=== PATIENT | male | born 1975 | race African-American/Black ===

== ENCOUNTER 2017-05-22 15:32 | Emergency (ER) | payer OTHER ==
[~2017-05-22] VITALS: Ht 172.7 cm; Wt 90.7 kg
--- NOTE | ~2017-05-22 | EKG ---
[address] [address] [place] [address] ELECTROCARDIOGRAM REPORT Name: NANDA SANTANA Room #: DEP Fay#: [id number] Admission: 05/22/17 Attend Phys: Discharge: 05/22/17 Date of : 71 Report #: [id number] THIS REPORT FOR: //name// [facility] ED Test Date: 2017-05-22 Test Time: 15:45:48 Pat Name: NANDA SANTANA Department: Room: Gender: Perch Mender: [facility] : 1975 Requested By: Sabrina Vincent Order Number: [id number] MD: Buck Aguilar Measurements Intervals [place] Rate: 88 P: 31 AL: 163 QRS: -24 QRSD: 98 T: 2 QT: 352 QTc: 426 Interpretive Statements Sinus rhythm Probable left atrial enlargement Borderline left axis deviation Abnormal R-wave progression, late transition No previous ECG available for comparison Electronically Signed On 05-23-2017 11:27:44 DROP FORGE HAND by Buck Aguilar [email or web address] <ELECTRONICALLY SIGNED> By: Buck Aguilar MD, [facility] 05/23/17 1127 1545 1545 Buck Aguilar MD, FACC /EPI
[2017-05-22 15:57] LABS: ABSOLUTE NEUTROPHILS 8.6 thou/uL (1.4-8.2); BASOPHILS 0.8 % (0.0-2.0); EOSINOPHILS 0.5 % (0.0-3.0); HEMATOCRIT 41.2 % (42.0-52.0); HEMOGLOBIN 13.7 gm/dL (14.0-18.0); LYMPHOCYTES 16.2 % (24.0-44.0); MCH 28.1 pg (26.0-34.0); MCHC 33.3 g/dL (28.0-37.0); MCV 84.3 fL (80.0-100.0); MONOCYTES 6.7 % (1.0-8.0); PLATELET COUNT 268 thou/uL (150-400); POLYS 75.8 % (36.0-66.0); RBC 4.89 mil/uL (4.50-6.00); WBC 11.3 thou/uL (4.0-11.0)
[2017-05-22 16:04] LABS: URINE BILIRUBIN NEGATIVE (Negative); URINE BLOOD TRACE (Negative); URINE CLARITY CLEAR; URINE COLOR YELLOW; URINE GLUCOSE-RANDOM* NEGATIVE (Negative); URINE KETONES NEGATIVE (Negative); URINE LEUKOCYTES NEGATIVE (Negative); URINE NITRITE NEGATIVE (Negative); URINE PROTEIN (DIPSTICK) NEGATIVE (Negative); URINE SPECIFIC GRAVITY 1.025 (1.005-1.035); URINE UROBILINOGEN 0.2 E.U./dl (0.2-1.0)
[2017-05-22 16:05] LABS: ANION GAP 10 mmol/L (7-16); BUN 11 mg/dL (7-18); CALCIUM 8.8 mg/dL (8.5-10.1); CHLORIDE 103 mmol/L (98-107); CO2 25 mmol/L (21-32); CREATININE 1.2 mg/dL (0.7-1.3); GLUCOSE 112 mg/dL (74-106); POTASSIUM 3.6 mmol/L (3.5-5.1); SODIUM 138 mmol/L (136-145)
[2017-05-22 16:14] LABS: ALBUMIN 3.9 g/dL (3.4-5.0); SGOT 21 U/L (15-37); SGPT 28 U/L (30-65); TOTAL BILIRUBIN 0.4 mg/dL (<0.1-1.0); TOTAL PROTEIN 8.4 g/dL (6.4-8.2); TROPONIN-I < 0.04 ng/mL (<0.06)
[2017-05-22] MEDS ORDERED: LISINOPRIL10 MG PO (16:21)
[2017-05-22 16:32] VITALS: BP 141/105
== END 2017-05-22 16:33 | disposition home or self-care (01) ==
LOC: ER 15:32
PROVIDERS: Nurse Practitioner Family
DX: I10 Essential (primary) hypertension (principal); Z91.14 Patient's other noncompliance with medication regimen; Z88.8 Allergy status to other drugs, medicaments and biological substances

== ENCOUNTER 2017-06-22 11:17 | Emergency (ER) | payer OTHER ==
[~2017-06-22] VITALS: Ht 172.7 cm; Wt 99.8 kg
[~2017-06-22 11:17] MED LIST: LISINOPRIL10 MG PO
[2017-06-22] MEDS ORDERED: LISINOPRIL10 MG PO (11:23)
[2017-06-22 12:19] VITALS: BP 166/102
== END 2017-06-22 12:20 | disposition home or self-care (01) ==
LOC: ER 11:17
DX: I10 Essential (primary) hypertension (principal); F10.99 Alcohol use, unspecified with unspecified alcohol-induced disorder; Z90.49 Acquired absence of other specified parts of digestive tract; Z88.8 Allergy status to other drugs, medicaments and biological substances

== ENCOUNTER 2017-07-19 16:56 | Inpatient (IN) | payer OTHER ==
[~2017-07-19] VITALS: Ht 172.7 cm; Wt 119.3 kg
--- NOTE | ~2017-07-19 | EKG ---
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 : 1975 Requested By: Marco Antonio Pratt Order Number: [id number] MD: Buck Aguilar Measurements Intervals [place] Rate: 98 P: 36 [place]: 166 QRS: -20 QRSD: 92 T: 7 QT: 336 QTc: 430 Interpretive Statements Sinus rhythm Probable left atrial enlargement Borderline left axis deviation Abnormal R-wave progression, late transition Compared to ECG 05/22/2017 15:45:48 No significant change was found Electronically Signed On 07-20-2017 9:49:20 CDT by Buck Aguilar [email or web address] <ELECTRONICALLY SIGNED> By: Buck Aguilar MD, [facility] 07/20/17 0949 1821 1821 Buck Aguilar MD, [facility] /EPI
--- NOTE | ~2017-07-19 | EKG ---
[address] [address] [facility] [place] [address] ELECTROCARDIOGRAM REPORT Name: NANDA SANTANA Room #: 211-P ADM IN M.R.#: [id number] Admission: 07/19/17 Attend Phys: Shaq Hernandez DO Discharge: Date of : 71 Report #: [id number] THIS REPORT FOR: //name// [facility] ED Test Date: 2017-07-19 Test Time: 17:02:50 Pat Name: NANDA SANTANA Department: Room: 211 Gender: M Rn Eligibility: ROXANE : 1975 Requested By: Marco Antonio Pratt Order Number: [id number] MD: Buck Aguilar Measurements Intervals [place] Rate: 99 P: 33 NE: 164 QRS: -41 QRSD: 92 T: -3 QT: 322 QTc: 414 Interpretive Statements Sinus rhythm Left axis deviation Abnormal R-wave progression, late transition Compared to ECG 05/22/2017 15:45:48 No significant changes Electronically Signed On 07-20-2017 9:48:06 CDT by Buck Aguilar [email or web address] <ELECTRONICALLY SIGNED> By: Buck Aguilar MD, [facility] 07/20/17 0948 01 01 Buck Aguilar MD, [facility] /EPI
--- NOTE | ~2017-07-19 | EKG ---
[address] [address] ELECTROCARDIOGRAM REPORT Name: NANDA SANTANA Room #: 211-P ADM IN M.R.#: [id number] Admission: 07/19/17 Attend Phys: Shaq Hernandez DO Discharge: Date of : 71 Report #: [id number] THIS REPORT FOR: //name// [facility] Test Date: 2017-07-20 Test Time: 06:13:35 Pat Name: NANDA SANTANA Department: Room: 211 P Gender: M Case Picker: SATHISH : 1975 Requested By: Marco Antonio Pratt Order Number: [id number] MD: Measurements Intervals [employer] Rate: 78 P: 47 [place]: 166 QRS: -33 QRSD: 92 T: -2 QT: 362 QTc: 413 Interpretive Statements Sinus rhythm Probable left atrial enlargement Left axis deviation Abnormal R-wave progression, late transition Compared to ECG 05/22/2017 15:45:48 No significant changes [email or web address] By: 0613 0613 Epiphany EpiphanyMD /EPI
--- NOTE | ~2017-07-19 | EKG ---
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 : 1975 Requested By: Sudarshan Fry Order Number: [id number] MD: Buck Aguilar Measurements Intervals [place] Rate: 78 P: 47 [place]: 166 QRS: -33 QRSD: 92 T: -2 QT: 362 QTc: 413 Interpretive Statements Sinus rhythm Left axis deviation Abnormal R-wave progression, late transition Compared to ECG 05/22/2017 15:45:48 No significant changes Electronically Signed On 07-20-2017 9:55:23 CDT by Buck Aguilar [email or web address] <ELECTRONICALLY SIGNED> By: Buck Aguilar MD, [facility] 07/20/17 0955 2 2 Buck Aguilar MD, [facility] /EPI
--- NOTE | ~2017-07-19 | EKG ---
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: Rich TRUONG : 1975 Requested By: Sudarshan Fry Order Number: [id number] MD: Buck Aguilar Measurements Intervals [place] Rate: 85 P: 22 ND: 164 QRS: -29 QRSD: 92 T: 0 QT: 359 QTc: 427 Interpretive Statements Sinus rhythm Borderline left axis deviation Abnormal R-wave progression, late transition Borderline T abnormalities, inferior leads Compared to ECG 05/22/2017 15:45:48 No significant change was found Electronically Signed On 07-20-2017 9:50:20 CDT by Buck Aguilar [email or web address] <ELECTRONICALLY SIGNED> By: Buck Aguilar MD, [facility] 07/20/17 0950 2220 2220 Buck Aguilar MD, [facility] /EPI
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
--- NOTE | ~2017-07-19 | CATHLAB ---
[facility] [address] [email or web address] [address] INVASIVE PROCEDURE REPORT Name: NANDA SANTANA Room #: 211-P [facility] IN M.R.#: [id number] Admission: 07/19/17 Attend Phys: Shaq Hernandez, Discharge: 07/20/17 Date of : 71 Date of Service: 07/21/17 1519 Report #: [id number] THIS REPORT FOR: //name// APPROVED REPORT Study performed: 07/20/2017 07:10:17 Patient Details Patient Status: In-Patient Room #: The patient is a 41 year-old male Event Personnel Sudarshan Fry Shop Service Technician, Petar Brizuela RN, Brandy Dawn Sandifer, David Monitor Procedures Performed Art Access - R femoral artery* Left Heart Cath w/or w/o Coronaries [id number] [facility] Renal Bilateral Peripheral Angiography [id number] CVRENALBIL 18958 Initial Mod Sed Same Phys/QHP Gr5y 944368 Hemostasis w/ Mynx Indication Unstable angina Procedure Narrative The patient was brought urgently to the Cardiac Catheterization Laboratory and was prepped and draped in a sterile manner. The Right Groin^ was infiltrated with 1% Lidocaine subcutaneous anesthesia. A PINNACLE 6FR Sheath #[id number] sheath was inserted into the RFA^. Coronary angiography was performed using coronary diagnostic catheters. The right coronary system was accessed and visualized with a JR 4 catheter. The left coronary system was accessed and visualized with a JL 5 catheter. The left ventricle was accessed and visualized with a Pigtail catheter. Left ventriculogram was performed in CROW projection. An aortogram of the abdominal aorta was performed. Pre-demployment femoral angiogram was performed . Closure device was deployed with a 6 Fr Mynx. The patient tolerated the procedure well and there were no complications associated with the procedure. There was no hematoma. Intraoperative Conscious Sedation Sedation start time: 08:05 Case end Time: 08:50 Fentanyl 50 mcg Versed 1.5 mg [facility] [place] [address] INVASIVE PROCEDURE REPORT Name: NANDA SANTANA Room #: 211-P [facility] IN .R.#: [id number] Admission: 07/19/17 Attend Phys: Shaq Hernandez, Discharge: 07/20/17 Date of : 71 Date of Service: 07/21/17 1519 Report #: [id number] Fluoro Time: 733.00 minutes Dose: 733 mGy Contrast Type and Amount: Omnipaque 150 ml Hemodynamics The aortic pressure is 148/93 mmHg with a mean of 93 mmHg. The left ventricular pressure is 155/11 mmHg with a mean of mmHg. The left ventricular end diastolic pressure is 26 mmHg. Conclusion #1 left main long free of disease giving rise to LAD and circumflex. Mild ostial left main disease is noted #2 LAD extends around apex there is a mild 30% irregularity in the proximal mid vessel otherwise is vessels white patent #3 circumflex OM is nondominant with mild disease #4 dominant right coronary 3040% irregularities proximally mid no occlusive disease #5 selective injection of bilateral renal arteries have mild renal artery atherosclerosis but no high-grade disease to suggest significant renal artery stenosis. #6 normal left ventricular size and systolic function EF 60% #7 abdominal aorta is intact with mild irregularities and no aneurysm. Recommendations and plan continue aggressive risk factor modification hypertensive therapy. No significant occlusive disease is noted. But aggressive risk factor modification. No lifting for 48 hours no line tub Jacuzzi or [place] for a week. <ELECTRONICALLY SIGNED> By: Suadrshan Fry MD, FACC 07/21/17 1519 1519 1519 Sudarshan Fry MD, FACC /INF
[2017-07-19 17:26] VITALS: BP 163/107
[2017-07-19 17:48] LABS: ABSOLUTE NEUTROPHILS 8.8 thou/uL (1.4-8.2); BASOPHILS 0.5 % (0.0-2.0); EOSINOPHILS 0.6 % (0.0-3.0); HEMATOCRIT 39.8 % (42.0-52.0); HEMOGLOBIN 13.3 gm/dL (14.0-18.0); LYMPHOCYTES 21.1 % (24.0-44.0); MCH 28.1 pg (26.0-34.0); MCHC 33.3 g/dL (28.0-37.0); MCV 84.5 fL (80.0-100.0); MONOCYTES 6.9 % (1.0-8.0); PLATELET COUNT 248 thou/uL (150-400); POLYS 70.9 % (36.0-66.0); RBC 4.71 mil/uL (4.50-6.00); RDW 14.3 % (10.5-14.5); WBC 12.4 thou/uL (4.0-11.0)
[2017-07-19 17:56] LABS: CALCIUM 9.2 mg/dL (8.5-10.1); CREATININE 1.3 mg/dL (0.7-1.3); POTASSIUM 3.8 mmol/L (3.5-5.1)
[2017-07-19 18:05] LABS: ALBUMIN 3.7 g/dL (3.4-5.0); TOTAL BILIRUBIN 0.6 mg/dL (<0.1-1.0); TOTAL PROTEIN 8.1 g/dL (6.4-8.2)
[2017-07-19 18:10] LABS: TROPONIN-I 0.61 ng/mL (<0.06)
[2017-07-19 18:37] VITALS: BP 118/65
[2017-07-19 19:59] VITALS: BP 183/120
[2017-07-19 21:58] VITALS: BP 158/109
[2017-07-19 23:28] VITALS: BP 143/98
[2017-07-20 04:22] VITALS: BP 131/90
[2017-07-20 05:01] LABS: ABSOLUTE NEUTROPHILS 6.3 thou/uL (1.4-8.2); BASOPHILS 0.7 % (0.0-2.0); EOSINOPHILS 1.5 % (0.0-3.0); HEMATOCRIT 41.8 % (42.0-52.0); HEMOGLOBIN 13.8 gm/dL (14.0-18.0); LYMPHOCYTES 29.3 % (24.0-44.0); MCHC 33.1 g/dL (28.0-37.0); MCV 84.7 fL (80.0-100.0); MONOCYTES 6.8 % (1.0-8.0); PLATELET COUNT 260 thou/uL (150-400); POLYS 61.7 % (36.0-66.0); RBC 4.94 mil/uL (4.50-6.00); RDW 14.7 % (10.5-14.5); WBC 10.3 thou/uL (4.0-11.0)
[2017-07-20 05:12] LABS: CHOLESTEROL 188 mg/dL (<200); HDL CHOLESTEROL 33 mg/dL (>40); LDL CHOLESTEROL 126 mg/dL (<100); TC:HDL 5.7 Ratio (Not establshd); TRIGLYCERIDE 145 mg/dL (<150); VLDL 29 mg/dL (<40)
[2017-07-20 05:13] LABS: SERUM ASSESSMENT Clear
[2017-07-20 05:14] LABS: TROPONIN-I 2.13 ng/mL (<0.06)
[2017-07-20 08:40] VITALS: BP 133/91
[2017-07-20] MEDS ORDERED: AMLODIPINE BESYL5 M1 PO (08:57)
[2017-07-20] MEDS ORDERED: COZAAR100 MG PO (08:57)
[2017-07-20] MEDS ORDERED: TOPROL XL100 MG PO (08:58)
[2017-07-20 11:08] VITALS: BP 133/91
[2017-07-20 12:00] VITALS: BP 112/75
[2017-07-20 12:58] VITALS: BP 133/91
[2017-07-20 13:17] VITALS: BP 133/91
== END 2017-07-20 13:27 | disposition home or self-care (01) | DRG 287 ==
LOC: ER 16:56 → EROBS 18:27 → 2N 18:38
PROVIDERS: Family Medicine; Physician Assistant
PROC: B2111ZZ Fluoroscopy of Multiple Coronary Arteries using Low Osmolar Contrast (ICD-10-PCS; principal; 2017-07-20)
PROC: 4A023N7 Measurement of Cardiac Sampling and Pressure, Left Heart, Percutaneous Approach (ICD-10-PCS; principal; 2017-07-20)
PROC: B2151ZZ Fluoroscopy of Left Heart using Low Osmolar Contrast (ICD-10-PCS; principal; 2017-07-20)
DX: I20.0 Unstable angina (principal); I10 Essential (primary) hypertension; Z90.49 Acquired absence of other specified parts of digestive tract; Z79.899 Other long term (current) drug therapy; Z88.8 Allergy status to other drugs, medicaments and biological substances; Z91.14 Patient's other noncompliance with medication regimen
CPT/HCPCS: 10194

== ENCOUNTER 2019-02-17 22:59 | Emergency (ER) | payer OTHER ==
[~2019-02-17] VITALS: Ht 172.7 cm; Wt 95.3 kg
[~2019-02-17 22:59] MED LIST changes: +AMLODIPINE BESYL5 M1 PO; +COZAAR100 MG PO; +TOPROL XL100 MG PO
[2019-02-17 23:36] LABS: POC CA IONIZED 4.8 mg/dL (4.5-5.3); POC CREATININE 1.2 mg/dL (0.6-1.3); POC HEMOGLOBIN 14.6 g/dL (14.0-18.0); POC POTASSIUM 4.1 mmol/L (3.5-5.1)
[2019-02-17 23:48] LABS: HEMATOCRIT 40.1 % (42.0-52.0); HEMOGLOBIN 12.9 gm/dL (14.0-18.0); MCH 27.7 pg (26.0-34.0); MCHC 32.3 g/dL (28.0-37.0); MCV 85.7 fL (80.0-100.0); RBC 4.68 mil/uL (4.50-6.00); RDW 14.1 % (10.5-14.5); WBC 13.1 thou/uL (4.0-11.0)
[2019-02-17 23:53] LABS: ANION GAP 10 mmol/L (7-16); BUN 17 mg/dL (7-18); CALCIUM 9.1 mg/dL (8.5-10.1); CHLORIDE 104 mmol/L (98-107); CO2 25 mmol/L (21-32); CREATININE 1.3 mg/dL (0.7-1.3); GLUCOSE 101 mg/dL (74-106); SODIUM 139 mmol/L (136-145)
[2019-02-18 00:02] LABS: APTT 29.6 Seconds (24.5-32.8); PROTIME 10.7 Seconds (9.3-11.4); TROPONIN-I <0.06 ng/mL (<0.06)
[2019-02-18 01:36] VITALS: BP 162/108
--- NOTE | 2019-02-19 11:22 | EKG ---
[address] [address] ELECTROCARDIOGRAM REPORT Name: NANDA SANTANA [id number] Admission: 02/17/19 Attend Phys: Discharge: 02/18/19 Date of : 71 Report #: [id number] THIS REPORT FOR: //name// [facility] ED Test Date: 2019-02-18 Test Time: 00:15:08 Pat Name: NANDA SANTANA Department: Room: Gender: M Coil Tier: JOSE FRANCISCO : 1975 Requested By: Mi Kaplan Order Number: [id number] MD: Saw Dimas Measurements Intervals [place] Rate: 85 P: 32 [place]: 168 QRS: -36 QRSD: 92 T: 7 QT: 363 QTc: 432 Interpretive Statements Sinus rhythm Left axis deviation Abnormal R-wave progression, late transition Borderline T abnormalities, inferior leads Baseline wander in lead(s) V1 Compared to ECG 07/20/2017 06:13:35 T-wave abnormality now present Electronically Signed On 02-19-2019 11:22:08 MUD WORKER by Saw Dimas [email or web address] <ELECTRONICALLY SIGNED> By: Saw Dimas MD 02/19/19 1122 0015 0015 Saw Dimas MD /EPI
== END 2019-02-18 01:37 | disposition home or self-care (01) ==
LOC: ER 22:59
PROVIDERS: Student in an Organized Health Care Education/Training Program
DX: G43.909 Migraine, unspecified, not intractable, without status migrainosus (principal); R47.01 Aphasia; I10 Essential (primary) hypertension; Z90.49 Acquired absence of other specified parts of digestive tract; Z98.890 Other specified postprocedural states; Z88.8 Allergy status to other drugs, medicaments and biological substances